=== PATIENT | female | born 1975 | race Caucasian/White ===

== ENCOUNTER 2023-01-10 15:08 | Outpatient (AMB) | payer OTHER, SELFPAY ==
--- NOTE | 2023-01-10 15:13 | MHC.OFFVIS ---
Intake Vital Signs 01/10/23 15:22 Height 5 ft 6 in Weight 218 lb 7.649 oz BMI 35.3 BP 100/60 Blood Pressure Location Rt brachial Position Sitting Respiration 16 Pulse 60 Pulse Source Palpation Temp 98.1 F Temp Source Skin Intake Visit Reasons: FM Intake Note: New patient here for fibromyalgia. Former rheumatology patient of [facility]. c/o joint pains, hand pains, new onset of painful skin german that spread [employer] Required: No Accompanied by: Self / Same As Patient Allergies No Known Allergies Allergy (Verified 01/10/23 15:19) Medication List - Last Reconciled 01/10/23 by Artis Carolina MD albuterol sulfate 90 mcg/actuation (Ventolin HFA) 2 puffs inhalation Q4H PRN benzonatate 200 mg PO Q8H PRN budesonide-formoterol 160-4.5 mcg/actuation (Symbicort) 2 puffs inhalation duloxetine 60 mg PO BEDTIME duloxetine 30 mg PO QAM fluticasone propionate 100 mcg/actuation (Flovent Diskus) 1 inh inhalation BID fluticasone propionate 50 mcg/actuation 2 sprays intranasal DAILY PRN loratadine 10 mg PO DAILY montelukast 10 mg PO BEDTIME pantoprazole 20 mg PO BID sucralfate 1 g PO QID tiotropium bromide 1.25 mcg/actuation (Spiriva Respimat) 2 puffs inhalation DAILY HPI HPI Comments History of Present Illness Details This is a 47-year-old female with a past medical history of fibromyalgia who presents for evaluation of fibromyalgia. Patient used to see Dr. Saba castañeda at [facility] a few years ago. Patient stated that she has diffuse pain everywhere. Over the last 6 months she has been noticing bumps under her skin in her upper extremities and sometimes her back. Patient is currently on Cymbalta 90 mg daily, she mentioned that she was on Lyrica at some point in the past and it was discontinued by her physician. She stated that Lyrica might have provided some help. She has difficulty falling and staying asleep. Today especially patient is in significant pain because she fell on the stairs to her basement and hurt her left foot. She has diffuse pain today especially in her left foot going up all the way into her left thigh. She stated that she has broken her left foot in the past. PFSH Medical History (Updated 01/10/23 @ 16:00 by Artis Carolina MD) Anxiety Pelvic pain GERD (gastroesophageal reflux disease) Asthma Sinus bradycardia Palpitation Severe obesity Hypertension Lipid screening Elevated random blood glucose level Fibromyalgia Essential hypertension, benign Mild persistent asthma Depression Fusion of lumbar spine Surgical History H/O tubal ligation Hx of tonsillectomy H/O heart surgery History of Family History Mother Hypertension Skin cancer Paternal Grandmother Diabetes Hypertension Father Hypertension Colon polyp Paternal Aunt Colon cancer Other Hx of autoimmune disorder Lupus Social History Household Members: Children Alcohol intake: current Alcohol intake frequency: holidays/special occasions only Patient Tobacco Use Status: Never used Tobacco Current occupational status: unemployed Female Reproductive History Menstrual Total pregnancies: 2 Review of Systems Const Reports fatigue, Reports headache(s) and Reports weakness Eyes Reports dry eyes and Reports eye pain ENT Reports dizziness, Reports dry mouth and Reports headache(s) Card Reports dyspnea Resp Reports cough, Reports dyspnea and Reports wheezing GI Reports heartburn Musc Reports back pain, Reports arthralgias, Reports joint swelling, Reports limited range of motion and Reports stiffness Skin/Breast Reports lesions and Reports unusual bruising Neuro Reports dizziness, Reports headache(s), Reports memory loss and Reports weakness Psych Reports abnormal sleep pattern, Reports anxiety, Reports depression and Reports memory loss Endo Reports fatigue Aller/Immun Reports wheezing Physical Exam Vital Signs: Last Vital Signs Temp 98.1 F 01/10/23 15:22 Pulse 60 01/10/23 15:22 Resp 16 01/10/23 15:22 BP 100/60 01/10/23 15:22 BMI result Body Mass Index 35.3 Const General: cooperative, healthy appearing and comfortable Nutritional Appearance: obese Orientation/consciousness: patient oriented x3 Limitations: no limitations HEENT Head: Yes normocephalic and Yes atraumatic Mouth: moist mucous membranes Resp Effort & Inspection: normal respiratory effort and able to speak in complete sentences Auscultation: clear to auscultation bilaterally Cardio Rate: regular rate Rhythm: regular rhythm GI Inspection: No distended Palpation (GI): Soft to palpation and nontender Skin General skin exam: no rashes or lesions noted Neuro General: patient oriented x3 Extrem Other: Walks with an antalgic gait No active synovitis Diffuse fibromyalgia tender point Normal nailfold capillaroscopy Right trochanteric bursa area tenderness Assessment & Plan Assessment & Plan (1) Fibromyalgia: Code(s): M79.7 - Fibromyalgia Plan: This is a 47-year-old female with a past medical history of fibromyalgia who presents as a new patient. I do not see any signs of autoimmune rheumatic disease upon my evaluation. Clinical picture consistent with fibromyalgia Discussed management of fibromyalgia with patient. Is a noninflammatory, non-autoimmune central afferent processing disorder leading to a diffuse pain syndrome. Patient follows up regularly with a psychologist and a psychiatrist. Try to follow sleep hygiene practices. Discuss CBT for sleep with psychotherapist. Consider a referral for a sleep study by her PCP. Patient would benefit from increased physical activity, patient did aquatherapy in the past and she felt it was helpful. Advised patient to try aquatherapy again Patient is currently on Cymbalta 90 mg daily. Previously she was on Lyrica. Advised patient to discuss with her PCP or psychiatrist whether Lyrica can be added Follow-up as needed (2) Fall (on) (from) other stairs and steps, initial encounter: Code(s): W10.8XXA - Fall (on) (from) other stairs and steps, initial encounter Plan: Today patient fell on the stairs in her basement and states that she hurt her left foot which she had fractured in the past. Advised patient to consider urgent care evaluation Plan I spent 30 minutes reviewing patient's chart, evaluating patient, counseling patient and documenting in the chart Coding Level of Care Code New Pt Level 3 (08941) Diagnoses Fibromyalgia M79.7 Fall (on) (from) other stairs and steps, initial encounter W10.8XXA
[2023-01-10 15:22] VITALS: BP 100/60; PULSE 60; RESP 16; TEMP 36.7; BMI 35.3
== END 2023-01-10 15:54 | disposition home or self-care (01) ==
PROVIDERS: PCP Internal Medicine; Visit Provider Student in an Organized Health Care Education/Training Program
DX: M79.7 Fibromyalgia (principal); W10.8XXA Fall (on) (from) other stairs and steps, initial encounter
CPT/HCPCS: 99203

== ENCOUNTER → 2023-01-10 15:08 | Outpatient (BNVA) | payer OTHER, SELFPAY | PROVIDERS: PCP Internal Medicine; Visit Provider Student in an Organized Health Care Education/Training Program ==